=== PATIENT | female | born 1970 | race Caucasian/White ===

== ENCOUNTER 2020-05-13 16:17 | Emergency (ER) | payer OTHER, SELFPAY ==
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
[2020-05-13 16:13] VITALS: BP 193/128; PULSE 99; RESP 17; TEMP 36.7; O2SAT 98
[2020-05-13 16:32] VITALS: BP 122/78; PULSE 102; RESP 18; O2SAT 100
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
[2020-05-13] MEDS: IBUPROFEN 400 MG TABLET 800 MG PO (16:39)
== END 2020-05-13 18:09 | disposition home or self-care (01) ==
PROVIDERS: Emergency Provider Emergency Medicine
DX: S39.012A Strain of muscle, fascia and tendon of lower back, initial encounter (principal); S13.9XXA Sprain of joints and ligaments of unspecified parts of neck, initial encounter; V43.52XA Car driver injured in collision with other type car in traffic accident, initial encounter
CPT/HCPCS: 72100; 72125; 99284; A9270